=== PATIENT | female | born 1935 | race Caucasian/White ===

== ENCOUNTER → 2019-06-23 | Outpatient (CLI) | payer MEDICARE ==
[~2019-06-23] MED LIST: ASPI81EC PO; ATOR10 PO; CALCAVITD PO; LISINOPRIL PO; MOTRIN PO; MULTIVITAMIN PO; OSTEO BI-FLEX PO
[2019-06-27 11:07] LABS: M-SPIKE, % Not Observed % (Not Observed); PROTEIN,TOTAL,URINE <4.0 mg/dL (Not Estab.)
== END | disposition home or self-care (01) ==
LOC: LAB 08:17 → LAB SHORT 08:17 → LAB FUT 06-16 17:10
PROVIDERS: Internal Medicine
DX: Z00.01 Encounter for general adult medical examination with abnormal findings (principal); Z11.59 Encounter for screening for other viral diseases; Z79.899 Other long term (current) drug therapy
CPT/HCPCS: 81050; 84166

== ENCOUNTER → 2020-08-20 | Outpatient (CLI) | payer MEDICARE | END | disposition home or self-care (01) | LOC: PLD 11:28 → LAB SHORT 11:28 | DX: D22.112 Melanocytic nevi of right lower eyelid, including canthus (principal) | CPT/HCPCS: 88305 ==

== ENCOUNTER → 2021-05-22 | Outpatient (CLI) | payer MEDICARE | END | disposition home or self-care (01) | LOC: LAB 12:21 → LAB SHORT 12:21 | DX: D22.0 Melanocytic nevi of lip (principal) | CPT/HCPCS: 88305 ==

== ENCOUNTER 2021-08-12 12:14 | Observation (INO) | payer MEDICARE ==
[~2021-08-12] VITALS: Ht 152.4 cm; Wt 59.9 kg
[~2021-08-12 12:14] MED LIST changes: -CALCIUM 500 MG1 EAC2 PO; -GLUCHON PO; -LISI10 PO; -OMEP20ER PO; -VITAMIN D5000 UNIT PO
[2021-08-12 12:40] LABS: BASOPHILS ABSOLUTE AUTO 0.06 K/mm3 (0.00-0.23); BASOPHILS PERCENT AUTO 0 % (0-2); EOSINOPHILS PERCENT AUTO 0 % (0-6); Hematocrit 36.5 % (33.0-51.0); Hemoglobin 11.6 g/dL (11.5-16.0); IMMATURE GRAN ABSOLUTE AUTO 0.13 K/mm3 (0.00-0.10); IMMATURE GRAN PERCENT AUTO 1 % (0-1); LYMPHOCYTES ABSOLUTE AUTO 1.18 K/mm3 (0.84-5.20); LYMPHOCYTES PERCENT AUTO 6 % (21-46); MONOCYTES ABSOLUTE AUTO 0.51 K/mm3 (0.16-1.47); MONOCYTES PERCENT AUTO 3 % (4-13); Mean Corpuscular HGB 23.8 pg (26.0-34.0); Mean Corpuscular HGB Conc 31.8 g/dL (31.5-36.5); Mean Corpuscular Volume 75 fL (80-100); Mean Platelet Volume 10.4 fL (9.1-12.4); NEUTROPHILS PERCENT AUTO 91 % (41-73); Platelet Count 638 K/mm3 (150-400); RDW Coefficient Variation 19.9 % (11.7-14.2); RDW Standard Deviation 53.1 fL (35.1-46.3); Red Blood Cell Count 4.87 M/mm3 (3.80-5.20); White Blood Cell Count 19.88 K/mm3 (4.00-11.30)
[2021-08-12 13:04] LABS: Albumin, Blood 3.1 g/dL (3.4-5.0); Bilirubin, Total 0.6 mg/dL (0.1-1.0); Calcium, Blood 9.5 mg/dL (8.5-10.1); Creatinine, Blood 0.98 mg/dL (0.40-1.00); Globulin, Blood 3.2 g/dL (2.2-4.0); Potassium, Blood 5.4 mmol/L (3.5-5.5); Total Protein, Blood 6.3 g/dL (6.4-8.2)
[2021-08-12 14:29] LABS: SARS-Cov-2 (COVID-19) PCR, MMC NEGATIVE (NEGATIVE)
[2021-08-12] MEDS ORDERED: LISI10 PO (15:07)
[2021-08-12] MEDS ORDERED: GLUCHON PO (15:08)
[2021-08-12] MEDS ORDERED: CALCIUM 500 MG1 EAC2 PO (15:08)
--- NOTE | 2021-08-12 18:32 | NUR ---
PATIENT ARRIVED TO UNIT VIA STRETCHER FROM ER APPROX 1734 PATIENT A&OX4 ABLE VERBALIZE NEEDS DENIES PAIN/DISCOMFORT NOTED WITH GENERALIZED WEAKNESS MODERATE ASSIST FOR TRANSFERS/AMBULATION/TOILETING PATIENT ASSISTED TO BSC NOTED WITH LOOSE DARK STOOL X1 ASSISTED BACK TO BED EDUCATED ON RISK FOR FALLS CALL LIGHT PROVIDED/IN PLACE PATIENT ENCOURAGED STAFF ASSIST NEEDED PATIENT ABLE TO GIVE HX PATIENT ON RA RESP EASY/EVEN/UNLABORED SKIN W/D INTACT NO DISTRESS NOTED
--- NOTE | 2021-08-12 18:40 | NUR ---
PATIENT NPO AT THIS TIME VSS VERBALIZES NO COMPLAINTS
[2021-08-12 20:51] LABS: BASOPHILS ABSOLUTE AUTO 0.05 K/mm3 (0.00-0.23); BASOPHILS PERCENT AUTO 0 % (0-2); EOSINOPHILS ABSOLUTE AUTO 0.04 K/mm3 (0.00-0.68); EOSINOPHILS PERCENT AUTO 0 % (0-6); Hematocrit 32.2 % (33.0-51.0); Hemoglobin 10.4 g/dL (11.5-16.0); IMMATURE GRAN ABSOLUTE AUTO 0.11 K/mm3 (0.00-0.10); IMMATURE GRAN PERCENT AUTO 1 % (0-1); LYMPHOCYTES ABSOLUTE AUTO 1.88 K/mm3 (0.84-5.20); LYMPHOCYTES PERCENT AUTO 11 % (21-46); MONOCYTES ABSOLUTE AUTO 0.98 K/mm3 (0.16-1.47); MONOCYTES PERCENT AUTO 6 % (4-13); Mean Corpuscular HGB 24.1 pg (26.0-34.0); Mean Corpuscular HGB Conc 32.3 g/dL (31.5-36.5); Mean Corpuscular Volume 75 fL (80-100); Mean Platelet Volume 9.9 fL (9.1-12.4); NEUTROPHILS ABSOLUTE AUTO 13.72 K/mm3 (1.96-9.15); NEUTROPHILS PERCENT AUTO 82 % (41-73); Platelet Count 533 K/mm3 (150-400); RDW Coefficient Variation 19.5 % (11.7-14.2); RDW Standard Deviation 51.8 fL (35.1-46.3); Red Blood Cell Count 4.32 M/mm3 (3.80-5.20); White Blood Cell Count 16.78 K/mm3 (4.00-11.30)
--- NOTE | 2021-08-13 04:18 | NUR ---
SHIFT SUMMARY A/OX4, SBA TO C D/T WEAKNESS. NO REPORTS OF STOOL OR EMESIS THIS SHIFT. DENIES PAIN OR SOB. VSS, NO ACUTE CHANGES AT THIS TIME. CLEAR LIQUID DIET, PLAN IS NPO AFTER BREAKFAST FOR SCOPE TODAY. BED IN LOWEST POSITION WITH CALL LIGHT IN REACH. WILL CONTINUE TO MONITOR AND REPORT TO ONCOMING RN.
[2021-08-13 05:31] LABS: BASOPHILS ABSOLUTE AUTO 0.05 K/mm3 (0.00-0.23); BASOPHILS PERCENT AUTO 0 % (0-2); EOSINOPHILS ABSOLUTE AUTO 0.14 K/mm3 (0.00-0.68); EOSINOPHILS PERCENT AUTO 1 % (0-6); Hematocrit 29.4 % (33.0-51.0); Hemoglobin 9.2 g/dL (11.5-16.0); IMMATURE GRAN ABSOLUTE AUTO 0.08 K/mm3 (0.00-0.10); IMMATURE GRAN PERCENT AUTO 1 % (0-1); LYMPHOCYTES ABSOLUTE AUTO 1.59 K/mm3 (0.84-5.20); LYMPHOCYTES PERCENT AUTO 12 % (21-46); MONOCYTES ABSOLUTE AUTO 0.97 K/mm3 (0.16-1.47); MONOCYTES PERCENT AUTO 7 % (4-13); Mean Corpuscular HGB 24.3 pg (26.0-34.0); Mean Corpuscular HGB Conc 31.3 g/dL (31.5-36.5); Mean Corpuscular Volume 78 fL (80-100); Mean Platelet Volume 9.9 fL (9.1-12.4); NEUTROPHILS ABSOLUTE AUTO 10.42 K/mm3 (1.96-9.15); NEUTROPHILS PERCENT AUTO 79 % (41-73); Platelet Count 407 K/mm3 (150-400); RDW Coefficient Variation 19.9 % (11.7-14.2); RDW Standard Deviation 54.8 fL (35.1-46.3); Red Blood Cell Count 3.79 M/mm3 (3.80-5.20); White Blood Cell Count 13.25 K/mm3 (4.00-11.30)
[2021-08-13 06:18] LABS: Albumin, Blood 2.7 g/dL (3.4-5.0); Bilirubin, Total 0.5 mg/dL (0.1-1.0); Bun/Creatinine Ratio 56.6 (12.0-20.0); Creatinine, Blood 1.06 mg/dL (0.40-1.00); Globulin, Blood 2.6 g/dL (2.2-4.0); Potassium, Blood 4.1 mmol/L (3.5-5.5); Total Protein, Blood 5.3 g/dL (6.4-8.2)
[2021-08-13 10:49] LABS: Hematocrit 29.4 % (33.0-51.0); Hemoglobin 9.2 g/dL (11.5-16.0)
[2021-08-13 12:33] LABS: Source, Urine Catheter
[2021-08-13 12:39] LABS: Appearance, Urine Clear (Clear); Bilirubin, Urine Neg (Neg); Blood, Urine Neg (Neg); Color, Urine Yellow (P-Yellow); Glucose Qualitative, Urine Neg (Neg); Ketones, Urine Neg (Neg); Leukocyte Esterase, Urine 3+ (Neg); Nitrite, Urine Neg (Neg); Protein, Urine Neg (Neg); Specific Gravity, Urine 1.015 (1.003-1.022); Urobilinogen, Urine NORM (Normal)
[2021-08-13 13:22] LABS: BASOPHILS ABSOLUTE AUTO 0.07 K/mm3 (0.00-0.23); BASOPHILS PERCENT AUTO 1 % (0-2); EOSINOPHILS ABSOLUTE AUTO 0.09 K/mm3 (0.00-0.68); EOSINOPHILS PERCENT AUTO 1 % (0-6); Hematocrit 31.4 % (33.0-51.0); Hemoglobin 9.8 g/dL (11.5-16.0); IMMATURE GRAN ABSOLUTE AUTO 0.07 K/mm3 (0.00-0.10); IMMATURE GRAN PERCENT AUTO 1 % (0-1); LYMPHOCYTES ABSOLUTE AUTO 1.42 K/mm3 (0.84-5.20); LYMPHOCYTES PERCENT AUTO 12 % (21-46); MONOCYTES ABSOLUTE AUTO 0.67 K/mm3 (0.16-1.47); MONOCYTES PERCENT AUTO 6 % (4-13); Mean Corpuscular HGB 24.1 pg (26.0-34.0); Mean Corpuscular HGB Conc 31.2 g/dL (31.5-36.5); Mean Corpuscular Volume 77 fL (80-100); Mean Platelet Volume 10.4 fL (9.1-12.4); NEUTROPHILS ABSOLUTE AUTO 9.66 K/mm3 (1.96-9.15); NEUTROPHILS PERCENT AUTO 81 % (41-73); Platelet Count 417 K/mm3 (150-400); RDW Standard Deviation 55.3 fL (35.1-46.3); Red Blood Cell Count 4.07 M/mm3 (3.80-5.20); White Blood Cell Count 11.98 K/mm3 (4.00-11.30)
[2021-08-13 13:32] LABS: Amorphous Light (0-Heavy); Bacteria Not Seen /hpf; Red Blood Cells, Urine 0-2 /hpf (0-2); Squamous Epithelial Cells Few /hpf (Few)
[2021-08-13 14:47] LABS: Hematocrit 31.7 % (33.0-51.0)
--- NOTE | 2021-08-13 15:44 | NUR ---
PATIENT REMAINS STABLE TRANSFERRED OFF OF UNIT @THIS TIME VIA STRETCHER TO HAVE ENDOSCOPY ORDERED PATIENT A&OX4 VOICES NO CONCERNS DENIES PAIN OR DISCOMFORT NPO STATUS HAS BEEN MAINTAINED SINCE BREAKFAST NO S/S DISTRESS NOTED
--- NOTE | 2021-08-13 16:13 | NUR ---
Patient up to Ambulate independently. Gait steady. History, Chart, Medications and Allergies reviewed before start of procedure.Lungs clear T/O to Auscultation. Patient confirms NPO status and agrees with scheduled surgery.DENTURES LEFT IN ROOM.
--- NOTE | 2021-08-13 16:28 | NUR ---
08/13/21 1628 Augustina Myles History, Chart, Medications and Allergies reviewed before start of procedure. Patient confirms NPO status and agrees with scheduled surgery. 3-LEAD EKG REVIEWED WITH PHYSICIAN PRIOR TO START OF PROCEDURE. MONITOR INTACT WITH CONTINUOUS PULSE OXIMETRY AND INTERMITTENT BP. PATIENT DETERMINED TO BE ASA APPROPRIATE FOR PROPOFOL SEDATION PRIOR TO START OF PROCEDURE BY DR. ZIMMERMAN.
--- NOTE | 2021-08-13 17:24 | NUR ---
PATIENT RETURNED TO UNIT FROM HAVING ENDOSCOPY ORDERED PATIENT ASSISTED BED FROM STRETCHER A&OX4 SPEECH CLEAR AND APPRPRIATE DENIES PAIN OR DISCOMFORT VSS RESP EASY/EVEN/UNLABORED WILL CONT TO MONITOR
--- NOTE | 2021-08-13 18:38 | NUR ---
PATIENT REMAINS IN STABLE CONDITION A&OX4 UP AD SINDY WITH STANDBY ASSIST/SUPERVISION GAIT STEADY NO BM THIS SHIFT NO EMESIS NOTED DENIES GI UPSET TOLERATING FOOD/FLUIDS WITHOUT DIFFICULTY AT THIS TIME DENIES PAIN OR DISCOMFORT NO S/S DISTRESS NOTED
[2021-08-13 18:40] LABS: Hematocrit 28.6 % (33.0-51.0)
[2021-08-13 22:22] LABS: Hematocrit 27.6 % (33.0-51.0); Hemoglobin 8.8 g/dL (11.5-16.0)
[2021-08-14 02:25] LABS: Hemoglobin 8.6 g/dL (11.5-16.0)
--- NOTE | 2021-08-14 04:42 | NUR ---
SHIFT SUMMARY A/OX4, SBA TO BSC. DENIES PAIN OR SOB. NO BM THIS SHIFT. TOLERATING PO DIET. VSS, NO ACUTE CHANGES AT THIS TIME. BED IN LOWEST POSITION WITH CALL LIGHT IN REACH. WILL CONTINUE TO MONITOR AND REPORT TO ONCOMING RN.
[2021-08-14 05:02] LABS: Hematocrit 26.6 % (33.0-51.0); Hemoglobin 8.3 g/dL (11.5-16.0)
[2021-08-14 05:31] LABS: Bun/Creatinine Ratio 32.7 (12.0-20.0); Creatinine, Blood 1.04 mg/dL (0.40-1.00); Potassium, Blood 4.3 mmol/L (3.5-5.5)
[2021-08-14] MEDS ORDERED: OMEP20ER PO (09:56)
[2021-08-14] MEDS ORDERED: VITAMIN D5000 UNIT PO (09:57)
--- NOTE | 2021-08-14 11:34 | NUR ---
DISCHARGED HOME. TEACHBACK METHOD UTILIZED AND ALL QUESTIONS ANSWERED. ALL PERSONAL BELONGINGS SENT HOME WITH PATIENT.
== END 2021-08-14 11:23 | disposition home or self-care (01) ==
LOC: ER 12:14 → MEDS 12:15 → ER 14:58 → MEDS 14:58
PROVIDERS: Emergency Medicine; Family Medicine; Internal Medicine; Internal Medicine Gastroenterology; ADMIT Hospitalist
PROC: 0DB68ZX Excision of Stomach, Via Natural or Artificial Opening Endoscopic, Diagnostic (ICD-10-PCS; principal; 2021-08-13 16:15)
PROC: 0D768ZZ Dilation of Stomach, Via Natural or Artificial Opening Endoscopic (ICD-10-PCS; principal; 2021-08-13 16:15)
DX: K22.11 Ulcer of esophagus with bleeding (principal); K25.0 Acute gastric ulcer with hemorrhage; T39.015A Adverse effect of aspirin, initial encounter; K29.51 Unspecified chronic gastritis with bleeding; K31.1 Adult hypertrophic pyloric stenosis; K44.9 Diaphragmatic hernia without obstruction or gangrene; I13.0 Hypertensive heart and chronic kidney disease with heart failure and stage 1 through stage 4 chronic kidney disease, or unspecified chronic kidney disease; I50.32 Chronic diastolic (congestive) heart failure; N18.30 Chronic kidney disease, stage 3 unspecified; Z86.73 Personal history of transient ischemic attack (TIA), and cerebral infarction without residual deficits; Z79.82 Long term (current) use of aspirin; Z88.5 Allergy status to narcotic agent
CPT/HCPCS: 36415; 71045; 80048; 80053; 81001; 84145; 85014; 85018; 85025; 86850; 86900; 86901; 87086; 93005; 93010; 96365; 96366; 96376; 99285-25; A9270; C1726; C9113; J2704; J7120; U0004

== ENCOUNTER → 2021-08-12 | Outpatient (CLI) | payer MEDICARE ==
[~2021-08-12] MED LIST changes: +ASPI325EC PO; -ASPI81EC PO; +CALCIUM 500 MG1 EAC2 PO; +GLUCHON PO; +Hair, Skin & N1 EACH PO; +LISI10 PO; -MULTIVITAMIN PO; +OMEP20ER PO; +VITAMIN D5000 UNIT PO
[2021-08-12 12:04] LABS: BASOPHILS ABSOLUTE AUTO 0.06 K/mm3 (0.00-0.23); BASOPHILS PERCENT AUTO 0 % (0-2); EOSINOPHILS PERCENT AUTO 0 % (0-6); Hematocrit 37.3 % (33.0-51.0); Hemoglobin 11.8 g/dL (11.5-16.0); IMMATURE GRAN ABSOLUTE AUTO 0.13 K/mm3 (0.00-0.10); IMMATURE GRAN PERCENT AUTO 1 % (0-1); LYMPHOCYTES ABSOLUTE AUTO 1.11 K/mm3 (0.84-5.20); LYMPHOCYTES PERCENT AUTO 6 % (21-46); MONOCYTES ABSOLUTE AUTO 0.51 K/mm3 (0.16-1.47); MONOCYTES PERCENT AUTO 3 % (4-13); Mean Corpuscular HGB 23.6 pg (26.0-34.0); Mean Corpuscular HGB Conc 31.6 g/dL (31.5-36.5); Mean Corpuscular Volume 75 fL (80-100); Mean Platelet Volume 9.8 fL (9.1-12.4); NEUTROPHILS ABSOLUTE AUTO 18.51 K/mm3 (1.96-9.15); NEUTROPHILS PERCENT AUTO 91 % (41-73); Platelet Count 601 K/mm3 (150-400); RDW Coefficient Variation 20.2 % (11.7-14.2); Red Blood Cell Count 4.99 M/mm3 (3.80-5.20); White Blood Cell Count 20.32 K/mm3 (4.00-11.30)
[2021-08-12 12:13] LABS: Albumin, Blood 3.4 g/dL (3.4-5.0); Bilirubin, Total 0.5 mg/dL (0.1-1.0); Bun/Creatinine Ratio 70.1 (12.0-20.0); Calcium, Blood 9.8 mg/dL (8.5-10.1); Creatinine, Blood 1.27 mg/dL (0.40-1.00); Globulin, Blood 3.5 g/dL (2.2-4.0); Potassium, Blood 4.5 mmol/L (3.5-5.5); Total Protein, Blood 6.9 g/dL (6.4-8.2)
== END ==
LOC: LAB SHORT 11:59
PROVIDERS: Family Medicine
DX: K92.89 Other specified diseases of the digestive system (principal)
CPT/HCPCS: 80053; 85025

== ENCOUNTER → 2022-04-10 | Outpatient (CLI) | payer MEDICARE ==
[~2022-04-10] MED LIST changes: +CALCIUM 500 MG1 EAC2 PO; +GLUCHON PO; +LISI10 PO; +OMEP20ER PO; +VITAMIN D5000 UNIT PO
== END | disposition home or self-care (01) ==
LOC: LAB 10:50 → LAB SHORT 10:50 → LAB FUT 04-03 14:20
PROVIDERS: Internal Medicine
DX: E87.8 Other disorders of electrolyte and fluid balance, not elsewhere classified (principal)
CPT/HCPCS: 81050